=== PATIENT | female | born 1970 | race Asian ===

== ENCOUNTER → 2017-08-12 19:28 | Emergency (ER) | payer BC ==
[2017-08-12 19:39] VITALS: BP 100/62
--- NOTE | 2017-08-12 19:53 | UC ---
HPI Wound/Suture Re-check - HPI Summary HPI Summary: here for removal of sutures placed 07-31-17. Has some persistent numbness in the area just distal to the wound, to the base of the fifth digit - History Of Current Complaint Chief Complaint: UCWounds Stated Complaint: SUTURE REMOVAL Time Seen by Provider: 08/12/17 19:43 Hx Obtained From: Patient Hx Last Menstrual Period: <1 WEEK AGO Onset/Duration: Sudden Onset Severity: Moderate - Allergies/Home Medications Allergies/Adverse Reactions: Allergies Allergy/AdvReac Type Severity Reaction Status Date / Time Sulfa Antibiotics Allergy Severe swelling, Verified 08/12/17 19:39 itching Ibuprofen Allergy Swelling Verified 08/12/17 19:39 Of Face,Lips,& Throat PMH/Surg Hx/FS Hx/Imm Hx Previously Healthy: Yes - Surgical History Surgical History: Yes Surgery Procedure, Year, and Place: TONSILLECTOMY - Family History Known Family History: Positive: None - Social History Occupation: Employed Full-time Alcohol Use: None Substance Use Type: None Smoking Status (MU): Never Smoked Tobacco - Immunization History Most Recent Influenza Vaccination: thinks 3-4 years ago, not sure had at [place] Most Recent Tetanus Shot: 2012 Review of Systems Constitutional: Negative Skin: Other - wound healing well, erythema near laceration. Eyes: Negative ENT: Negative Respiratory: Negative Cardiovascular: Negative Gastrointestinal: Negative Genitourinary: Negative Motor: Negative Neurovascular: Negative Musculoskeletal: Negative Neurological: Negative Psychological: Negative Is Patient Immunocompromised?: No All Other Systems Reviewed And Are Negative: Yes Physical Exam Triage Information Reviewed: Yes Appearance: Well-Appearing Vital Signs: Initial Vital Signs Temp 98.2 F 08/12/17 19:36 Pulse 80 08/12/17 19:36 Resp 16 08/12/17 19:36 BP 100/62 08/12/17 19:36 Pulse Ox 100 08/12/17 19:36 Skin Exam: Other - laceration with 3 mm erythema, mildly trender 10 interrupted sutures removed from distal laceration, 3 from more proximal lac. Mild separation of wound margins, about 1 mm, no drainage. Steristrips applied. Course/Dx - Course Course Of Treatment: sutures removed. - Differential Dx - Laceration/Wound Provider Diagnoses: laceration left hand, sutures removed. Discharge - Discharge Plan Condition: Stable Disposition: HOME Patient Education Materials: Stitches Removal (ED) Referrals: Savana Clay MD [Primary Care Provider] - Additional Instructions: Monitor for infection, and keep the wound as dry as possible for the next 48 hours. Apply thin layer of antibitoic ointments.
== END | disposition home or self-care (01) ==
LOC: UCEAST 19:28
DX: S61.217D Laceration without foreign body of left little finger without damage to nail, subsequent encounter (principal); X58.XXXD Exposure to other specified factors, subsequent encounter; Y92.9 Unspecified place or not applicable

== ENCOUNTER 2017-10-16 07:04 | Emergency (ER) | payer BC ==
[2017-10-16 07:40] VITALS: BP 102/65
--- NOTE | 2017-10-16 09:13 | UC ---
Respiratory Complaint HPI - HPI Summary HPI Summary: c/o nasal congestion, cough and malaise for the past 5 days, cough has worsened since yesterday - History of Current Complaint Chief Complaint: UCRespiratory Stated Complaint: RESP Time Seen by Provider: 10/16/17 08:27 Hx Obtained From: Patient Hx Last Menstrual Period: 09/15/17 ?: No Onset/Duration: Gradual Onset Timing: Intermittent Episodes Severity Initially: Moderate Severity Currently: Moderate Pain Scale Used: 0-10 Numeric - 0 Character: Cough: Nonproductive Aggravating Factors: Nothing Alleviating Factors: Nothing Related History: Seasonal Allergies - Risk Factors Pulmonary Embolism Risk Factors: Negative Cardiac Risk Factors: Negative Pseudomonas Risk Factors: Negative Tuberculosis Risk Factors: Negative - Allergies/Home Medications Allergies/Adverse Reactions: Allergies Allergy/AdvReac Type Severity Reaction Status Date / Time Sulfa Antibiotics Allergy Severe swelling, Verified 10/16/17 07:37 itching Ibuprofen Allergy Swelling Verified 10/16/17 07:37 Of Face,Lips,& Throat PMH/Surg Hx/FS Hx/Imm Hx - Surgical History Surgical History: Yes Surgery Procedure, Year, and Place: TONSILLECTOMY - Family History Known Family History: Positive: None - Social History Alcohol Use: None Substance Use Type: None Smoking Status (MU): Never Smoked Tobacco - Immunization History Most Recent Influenza Vaccination: thinks 3-4 years ago, not sure had at [place] Most Recent Tetanus Shot: 2012 Review of Systems All Other Systems Reviewed And Are Negative: Yes Physical Exam Triage Information Reviewed: Yes Appearance: Well-Appearing Vital Signs: Initial Vital Signs Temp 98 F 10/16/17 07:38 Pulse 76 10/16/17 07:38 Resp 16 10/16/17 07:38 BP 102/65 10/16/17 07:38 Pulse Ox 100 10/16/17 07:38 Vital Signs Reviewed: Yes Eye Exam: Normal ENT Exam: Normal Dental Exam: Normal Neck exam: Normal Respiratory Exam: Normal Cardiovascular Exam: Normal UC Diagnostic Evaluation - Laboratory O2 Sat by Pulse Oximetry: 100 Respiratory Course/Dx - Course Course Of Treatment: po fluids, tylenol for pain or fever, rest - Differential Dx/Diagnosis Provider Diagnoses: URI Discharge - Discharge Plan Condition: Stable Disposition: HOME Patient Education Materials: Upper Respiratory Infection (ED) Referrals: Savana Clay MD [Primary Care Provider] -
== END 2017-10-16 09:12 | disposition home or self-care (01) ==
LOC: UCEAST 07:04
DX: J06.9 Acute upper respiratory infection, unspecified (principal); Z90.89 Acquired absence of other organs; Z88.6 Allergy status to analgesic agent; Z88.2 Allergy status to sulfonamides
CPT/HCPCS: 87502; 99211; G0463